=== PATIENT | female | born 1980 | race Caucasian/White ===

== ENCOUNTER 2024-06-24 08:32 | Outpatient (CLI) | payer OTHER, SELFPAY ==
--- NOTE | ~2024-06-24 | US_ITS ---
Abdominal Sonogram: Real-time sonographic imaging of the abdomen was performed. Clinical History: Thrombocytopenia Findings: The liver appears echogenic and heterogeneous, with no evidence of mass lesion or bile carmel t dilatation. Main portal vein demonstrates normal direction of flow. The spleen is normal in size wi thout evidence of focal lesion. The gallbladder is well distended, and appears normal with no eviden ce of gallstone or wall thickening. The common bile duct measures 6 mm. The visualized pancreas, aor ta, and IVC are unremarkable. The right kidney measures 9.9 cm in length and the left kidney measure s 11.1 cm. There is no hydronephrosis or renal calculus. Impression: Diffuse fatty infiltration of the liver, versus possibly other chronic liver disease. Reviewed, dictated and finalized at location . PUMPER Impression: Diffuse fatty infiltration of the liver, versus possibly other chronic liver di sease.
== END 2024-06-24 08:33 | disposition home or self-care (01) ==
PROVIDERS: PCP Physician Assistant Medical; Visit Provider Physician Assistant Medical
DX: D69.6 Thrombocytopenia, unspecified (principal)
CPT/HCPCS: 76700